=== PATIENT | female | born 1995 | race Caucasian/White ===

== ENCOUNTER 2022-09-01 03:21 | Inpatient (IN) ==
[2022-09-01] MEDS ORDERED: OXYTOCIN 30 UNITS/500 ML BAG IV PRN ×2 (03:36→09:12)
[2022-09-01] MEDS ORDERED: LIDOCAINE 1% LOCAL 20 ML VIAL INFIL PRN (03:36)
[2022-09-01] MEDS: LACTATED RINGER'S 1,000 ML IV PRN ×2 (04:00→05:01)
[2022-09-01 04:10] LABS: Hematocrit (blood only) 36.8 % (34.1-44.9); Hemoglobin 12.6 g/dl (12.0-16.0); Mean Corpuscular Hemoglobin 28.4 pg (25.0-34.0); Mean Corpuscular Hgb Conc 34.2 g/dL (32.0-36.0); Mean Corpuscular Volume 82.9 fL (80.0-100.0); Mean Platelet Volume 12.7 fL (9.4-12.3); Platelet Count 194 K/uL (130-400); RDW Coefficient of Variation 15.2 % (11.5-14.5); RDW Standard Deviation 45.1 fL (36.4-46.3); Red Blood Count 4.44 M/uL (3.93-5.22)
[2022-09-01] MEDS ORDERED: ePHEDrine sulfate 50 MG/ML AMP ONE (04:36)
[2022-09-01] MEDS ORDERED: LIDOCAINE 2%/EPINEPHRINE 1:200,000 20 ML SDV ONE (04:37)
[2022-09-01] MEDS ORDERED: SODIUM CHLORIDE 0.9% INJ 10 ML VIAL ONE (04:37)
[2022-09-01] MEDS ORDERED: BUPIVACAINE 0.25% 30 ML VIAL ONE (04:37)
[2022-09-01] MEDS ORDERED: fentaNYL citrate 100 MCG/2 ML VIAL ONE (04:37)
[2022-09-01] MEDS ORDERED: fentaNYL 2MCG/ML ROPIVACAINE 1.25MG/ML 100 ML BAG EPI ONE (04:38)
[2022-09-01] MEDS ORDERED: fentaNYL 2MCG/ML ROPIVACAINE 1.25MG/ML 100 ML BAG EPI PRN (04:56)
[2022-09-01] MEDS ORDERED: ePHEDrine sulfate 50 MG/ML AMP IV PRN (04:56)
[2022-09-01] MEDS ORDERED: diphenhydrAMINE 50 MG/ML VIAL IV PRN (04:56)
[2022-09-01] MEDS ORDERED: NALOXONE HCL 0.4 MG/1 ML VIAL/CARP IV PRN (04:56)
[2022-09-01] MEDS ORDERED: NALBUPHINE HCL INJ 10 MG/ML AMP IV PRN (04:56)
[2022-09-01] MEDS ORDERED: NALOXONE HCL 1 MG in SODIUM CHLORIDE 0.9% 1000ML 1,000 ML IV PRN (04:56)
--- NOTE | 2022-09-01 04:56 | Anesthesiology Consultation ---
Date of Service September 01, 2022 Assessment & Plan (1) Encounter for pre-operative examination: Chart Review Chart Review: Patient NOT seen in Pre Admission Testing and Acceptable Risk for Labor Epidural Consults Requested none History Height/Weight Height: 5 ft 4 in Weight: 73.21 kg Allergies Allergy/AdvReac Type Severity Reaction Status Date / Time No Known Allergies Allergy Verified 08/31/22 10:17 Medications Home Medications Medication Instructions Recorded Confirmed Last Taken vitamins no.144-folic 800 mcg PO QAM 02/16/20 09/01/22 08/30/22 21:00 acid 400 mcg chewable tablet () heparin, porcine (PF) 5,000 units subcut BID 08/24/22 09/01/22 08/31/22 21:15 Active Medications Generic Name Dose Route Start Last Admin Trade Name Freq PRN Reason Stop Dose Admin Lactated Ringer's 1,000 mls @ 125 mls/hr 09/01/22 03:36 09/01/22 04:00 Lr IV 09/03/22 03:35 999 mls/hr .Q8H PRN Administration L&D Protocol Protocol Past Medical History Medical History Miscarriage Pulmonary embolism Threatened Vaginal bleeding Past Family History Family History Grandfather Diabetes Heart disease Mother Heart disease Past Surgical History Surgical History [employer] teeth extracted Social History Smoking Status: Never smoker Hx Alcohol Use: No Hx Substance Use: No substance use type: does not use Physical Exam Vital Signs Last Vital Signs Temp 97.7 F 09/01/22 03:47 Pulse 104 H 09/01/22 03:33 Resp 18 09/01/22 03:47 BP 131/88 09/01/22 03:33 Testing Laboratory Results 09/01/22 03:58
--- NOTE | 2022-09-01 07:15 | Labor Progress Brief Note ---
Date of Service September 01, 2022 Subjective Admitted in labor overnight, @ 39wk. Thought she had been leaking fluid but amnisure negative. Requested epidural, which was provided. (Does use heparin for h/o PE, last dose was 9pm yesterday, epidural given around 5am this morning.) Now comfortable. Assessment & Plan (1) Supervision of normal intrauterine in multigravida: Plan: Progressing spontaneously, anticipate . Admission and Anticipated Discharge Date Admission Date: September 01, 2022 Physical Exam Genitourinary: 7/100/0 Bloody show and mucus present on perineum SROM occurred as soon as examiner touched bulging bag, fluid is clear FHT Cat 1 [place] Q3 Results & Data ([facility]) Vital Signs (Past 12 Hours) Vital Signs Temp Pulse Resp BP Pulse Ox Pulse Ox O2 Del Method 09/01/22 04:56 98 Room Air 09/01/22 03:47 97.7 F 18 09/01/22 07:11 100 09/01/22 07:11 127 H 09/01/22 07:06 100 09/01/22 07:06 101 H 09/01/22 07:01 99 09/01/22 07:01 90 09/01/22 06:58 75 09/01/22 06:58 129/86 09/01/22 06:56 100 09/01/22 06:56 84 09/01/22 06:51 99 09/01/22 06:51 81 09/01/22 06:46 99 09/01/22 06:46 72 09/01/22 06:43 71 09/01/22 06:43 130/83 09/01/22 06:41 99 09/01/22 06:41 76 09/01/22 06:36 99 09/01/22 06:36 93 H 09/01/22 06:31 100 09/01/22 06:31 83 09/01/22 06:30 68 09/01/22 06:30 133/85 09/01/22 06:26 100 09/01/22 06:26 75 09/01/22 06:21 99 09/01/22 06:21 70 09/01/22 06:16 100 09/01/22 06:16 77 09/01/22 06:13 72 09/01/22 06:13 124/82 09/01/22 06:11 100 09/01/22 06:11 88 09/01/22 06:06 100 09/01/22 06:06 67 09/01/22 06:01 100 09/01/22 06:01 78 09/01/22 05:57 74 09/01/22 05:57 136/84 09/01/22 05:56 100 09/01/22 05:56 88 09/01/22 05:54 89 09/01/22 05:54 125/81 09/01/22 05:51 100 09/01/22 05:51 72 09/01/22 05:51 72 09/01/22 05:51 128/82 09/01/22 05:48 68 09/01/22 05:48 130/85 09/01/22 05:46 100 09/01/22 05:46 66 09/01/22 05:45 76 09/01/22 05:45 135/81 09/01/22 05:43 80 09/01/22 05:43 132/77 09/01/22 05:41 100 09/01/22 05:41 85 09/01/22 05:39 62 09/01/22 05:39 132/75 09/01/22 05:36 100 09/01/22 05:36 80 09/01/22 05:36 141/72 H 09/01/22 05:33 77 09/01/22 05:33 146/83 H 09/01/22 05:31 100 09/01/22 05:31 72 09/01/22 05:30 92 H 09/01/22 05:30 134/89 09/01/22 05:27 77 09/01/22 05:27 128/78 09/01/22 05:26 100 09/01/22 05:26 89 09/01/22 05:24 75 09/01/22 05:24 125/77 09/01/22 05:21 99 09/01/22 05:21 88 09/01/22 05:21 85 09/01/22 05:21 127/78 09/01/22 05:18 92 H 09/01/22 05:18 118/76 09/01/22 05:16 100 09/01/22 05:16 86 09/01/22 05:15 101 H 09/01/22 05:15 122/82 09/01/22 05:13 81 09/01/22 05:13 124/76 09/01/22 05:11 100 09/01/22 05:11 84 09/01/22 05:06 100 09/01/22 05:06 99 H 09/01/22 03:33 104 H 131/88 Coding Level of Care Code None Diagnoses Supervision of normal intrauterine in multigravida Z34.80
[2022-09-01] MEDS ORDERED: bisacodyL 10 MG SUPP PR PRN (09:12)
[2022-09-01] MEDS ORDERED: IBUPROFEN 600 MG TAB PO PRN (09:12)
[2022-09-01] MEDS ORDERED: BENZOCAINE 20% AER SPR 82.5 GM CAN EXT PRN (09:12)
[2022-09-01] MEDS ORDERED: HYDROCORTISONE ACETATE 25 MG SUPP PR PRN (09:12)
[2022-09-01] MEDS ORDERED: ACETAMINOPHEN 325 MG TAB PO PRN (09:12)
[2022-09-01] MEDS ORDERED: oxyCODONE/ACETAMINOPHEN 5mg/325mg TAB PO PRN (09:12)
--- NOTE | 2022-09-01 10:04 | Delivery Summary ---
Vaginal Delivery Summary Date of Service September 01, 2022 Vaginal Delivery Summary [facility] Patient is a 26-year-old multiparous female who presents at 39 weeks in active labor. was complicated by a prior history of pulmonary embolism for which she was on prophylactic Lovenox and then switched to heparin at 36 weeks. She received effective epidural analgesia. She progressed to full dilation rapidly after spontaneous rupture of membranes. She pushed effectively over intact perineum for delivery of a viable male infant. The was in the vertex presentation after the head was delivered, the rest the infant delivered easily and was placed on the mother's abdomen for further attention and drying. The infant was vigorous, crying and moving all 4 limbs. After 1 minute the cord was clamped and cut. Inspection of the vagina and perineum revealed only very superficial abrasions which were not bleeding and therefore not repaired. Placenta was delivered intact with a three-vessel cord. bleeding was controlled with dilute Pitocin and fundal massage. Estimated blood loss was 200 cc. Mother and were doing well after delivery[place] [facility] [place] Delivery Type Details: [facility]
--- NOTE | 2022-09-01 10:27 | Anesthesia Procedure Note ---
Date of Service September 01, 2022 Anesthesia Post Epidural Note Vital Signs Vital Signs: Temp Pulse Resp BP Pulse Ox O2 Del Method 36.9 C 77 18 131/75 99 09/01/22 09:15 09/01/22 10:05 09/01/22 09:15 09/01/22 10:05 09/01/22 09:11 09/01/22 04:56 Pain Intensity Abdomen: Pain Intensity: 4 Notes Mental Status: alert / awake / arousable Nausea / Vomiting: adequately controlled Pain: adequately controlled Airway Patency, RR, SpO2: stable & adequate BP & HR: stable & adequate Hydration State: stable & adequate Neuraxial Anesthesia: was administered and sensory block is resolving Anesthetic Complications: no major complications apparent and Pt Satisfied with anesthetic care Epidural: Removed without complications and With tip intact
[2022-09-01] MEDS: DOCUSATE SODIUM 100 MG CAP PO SCH (20:47)
[2022-09-02 06:45] LABS: Hematocrit (blood only) 32.6 % (34.1-44.9); Hemoglobin 10.7 g/dl (12.0-16.0); Mean Corpuscular Hemoglobin 28.1 pg (25.0-34.0); Mean Corpuscular Hgb Conc 32.8 g/dL (32.0-36.0); Mean Corpuscular Volume 85.6 fL (80.0-100.0); Mean Platelet Volume 12.1 fL (9.4-12.3); Platelet Count 134 K/uL (130-400); RDW Coefficient of Variation 15.5 % (11.5-14.5); RDW Standard Deviation 47.8 fL (36.4-46.3); Red Blood Count 3.81 M/uL (3.93-5.22); White Blood Count 6.83 K/ul (4.8-10.8)
[2022-09-02] MEDS ORDERED: PRENATAL VITAMIN 1 TAB PO SCH (08:00)
--- NOTE | 2022-09-02 08:14 | Obstetrical Progress Note ---
Date of Service September 02, 2022 Assessment & Plan (1) Encounter for care and examination after delivery: satisfactory exam desires to be discharged already had at least 60 days of lovenox at home so doesn't need a new script restart lovenox QD for 6 weeks followup in 6 weeks for exam Subjective Ambulation: ambulating normally Voiding: no voiding problems Passing Gas:: Yes Diet Tolerance:: regular diet Lochia:: Small Review of Systems All systems reviewed & are unremarkable except as noted in HPI & below Physical Exam Constitutional WD/WN, vitals as above Psychiatric A+Ox3, euthymic affect Genitourinary OB Exam Abdomen: + fundal height Fundus: + firm and + relation to umbilicus (below U) no calf tenderness Results & Data ([facility]) Vital Signs (Past 12 Hours) Vital Signs Temp Pulse Resp BP Pulse Ox O2 Del Method 09/02/22 03:50 97.7 F 62 18 120/73 96 Room Air 09/01/22 22:53 97.9 F 52 L 18 124/76 94 Room Air 09/01/22 20:35 98.1 F 81 16 128/72 97 Room Air
[2022-09-02] MEDS ORDERED: ENOXAPARIN INJ 40 MG/0.4 ML SYR SQ SCH (09:00)
[2022-09-02] MEDS ORDERED: DIPHTHERIA/TETANUS/PERTUSSIS 0.5 ML SYR/VIAL IM ONE (09:00)
[2022-09-02] MEDS: DOCUSATE SODIUM 100 MG CAP PO SCH (09:55)
[2022-09-02] MEDS ORDERED: bisacodyL 5 MG TABEC PO SCH (20:00)
== END 2022-09-02 11:20 | disposition home or self-care (01) | DRG 807 ==
LOC: OPB 03:21 → 4S1 03:24 → 4E2 15:15
DX: Z3A.39 39 weeks gestation of pregnancy; Z37.0 Single live birth; O88.82 Other embolism in childbirth